=== PATIENT | female | born 1970 | race Caucasian/White ===

== ENCOUNTER 2021-05-04 19:08 | Emergency (ER) | payer BC, OTHER ==
[~2021-05-04] VITALS: Ht 160 cm; Wt 75.7 kg
[2021-05-04 19:09] VITALS: BP 128/86
[2021-05-04] MEDS ORDERED: LIDOCAINE-MPF 1%, 5ML INFIL ONE (19:30)
--- NOTE | 2021-05-04 22:32 | NUR ---
PT AMBULATORY FROM LOBBY TO ROOM ATT.
--- NOTE | 2021-05-04 22:48 | NUR ---
PT PRESENTS TO THE ED WITH LACERATION TO HER LEFT HAND RIGHT BELOW HER THUMB. PT HAS WOUND WRAPPED. PT ON [facility]
[2021-05-04] MEDS ORDERED: LIDOCAINE-MPF 1%, 5ML ONE (23:11)
[2021-05-04] MEDS ORDERED: DIPH,PERTUSS(ACELL),TET VAC/PF 0.5 ML IM-VACC ONE ×2 (23:23→23:30)
--- NOTE | 2021-05-04 23:58 | NUR ---
Patient given discharge instructions and they have confirmed that they understand the instructions. Patient ambulatory with steady gait.
== END 2021-05-05 00:07 | disposition home or self-care (01) ==
LOC: ED 19:30
DX: S61.412A Laceration without foreign body of left hand, initial encounter (principal); X58.XXXA Exposure to other specified factors, initial encounter; Y93.89 Activity, other specified; Y92.009 Unspecified place in unspecified non-institutional (private) residence as the place of occurrence of the external cause; Y99.8 Other external cause status
CPT/HCPCS: 12001; 90471; 90715